=== PATIENT | male | born 1990 | race Caucasian/White ===

== ENCOUNTER 2022-07-08 14:44 | Emergency (ER) | payer SELFPAY ==
[2022-07-08 16:12] LABS: CORONAVIRUS COVID-19 NAA NEGATIVE (NEGATIVE)
[2022-07-08] MEDS ORDERED: Ondansetron 4 MG/2 ML SDV IVPUSH ONE (17:10)
[2022-07-08] MEDS: Ondansetron 4 MG Tab.DIS PO ONE (17:30)
== END 2022-07-08 17:40 | disposition home or self-care (01) ==
LOC: JD.ED 14:44
DX: B34.9 Viral infection, unspecified (principal); Z20.822 Contact with and (suspected) exposure to COVID-19
CPT/HCPCS: 0241U; 71045; 93005; 99285; A9270